=== PATIENT | female | born 1950 | race Two or more races ===

== ENCOUNTER 2016-10-13 13:55 | Emergency (ER) | payer BC ==
[2016-10-13 14:19] VITALS: BP 136/77; PULSE 54; RESP 18; TEMP 98.6; O2SAT 96
--- NOTE | 2016-10-13 15:21 | UCPHY ---
H & P Time Seen by Provider: 10/13/16 15:06 Patient Type: New HPI/ROS: This patient complains of nasal congestion associated with a cough for 2 days. She feels that the cough worsens at night. She has associated myalgias occasional chills. She feels a burning sensation in her sinuses. She reports a peak fever of 102 head night but that has no fever today. She has a slight scratchy throat associated with her symptoms. She tried [id number] medications without much improvement in her symptoms. ROS: She reports mild wheeze sensation. She has no pleuritic pain no other pulmonary symptoms. No constitutional symptoms other than that mentioned in HPI. 5 point ROS is otherwise negative Smoking Status: Never smoked Physical Exam: Physical Exam Vital signs are normal. General: No acute distress HEENT: Nose: Clear discharge. No sinus tenderness to percussion. Oropharynx is clear with no significant erythema or exudates. No dysphonia. Ears: External canals and TMs are clear bilaterally. Eyes: Pupils equal and react to light. Extraocular motions are intact. Lungs: Clear to auscultation with no rales, rhonchi or wheeze. No respiratory distress. Cardiac: Regular rate and rhythm with no murmur gallop rub. She has no peripheral edema. Skin: No rash or pallor. Neuro: Alert and oriented x3 with no sensorimotor deficits. Differential diagnosis: Viral URI versus influenza. Constitutional: Initial Vital Signs Temperature (C) 37.0 C 10/13/16 14:16 Heart Rate 54 L 10/13/16 14:16 Respiratory Rate 18 10/13/16 14:16 Blood Pressure 136/77 H 10/13/16 14:16 O2 Sat (%) 96 10/13/16 14:16 O2 Delivery Mode Room Air Allergies/Adverse Reactions: amoxicillin trihydrate [From Augmentin] Allergy (Verified 10/13/16 14:14) clindamycin Allergy (Verified 10/13/16 14:14) clindamycin HCl [From Cleocin] Allergy (Verified 10/13/16 14:14) clindamycin palmitate HCl [From Cleocin] Allergy (Verified 10/13/16 14:14) clindamycin phosphate [From Cleocin] Allergy (Verified 10/13/16 14:14) epinephrine Allergy (Verified 10/13/16 14:14) latex Allergy (Verified 10/13/16 14:14) NSAIDS (Non-Steroidal Anti-Inflamma Allergy (Verified 10/13/16 14:14) potassium clavulanate [From Augmentin] Allergy (Verified 10/13/16 14:14) Sulfa (Sulfonamide Antibiotics) Allergy (Verified 10/13/16 14:14) Home Medications: Medication Instructions Recorded Albuterol Hfa Anes Only [Proair 2 puffs IH Q4 PRN #1 mdi 10/13/16 Hfa Icu (*)] Coumadin 10/13/16 Eye Drops 10/13/16 Hydrochlorothiazide 10/13/16 Montelukast Sodium 10/13/16 Premarin 10/13/16 Proventil 10/13/16 MDM/Departure - MDM Diagnostics: Influenza is negative. ED Course/Re-evaluation: I counseled the patient regarding URI. She appears clinically well with no concerning findings that would suggest lower respiratory infection or other complications. - Depart Disposition: Home, Routine, Self-Care Clinical Impression: Viral URI with cough Instructions: Upper Respiratory Infection (ED) Additional Instructions: Diagnosis: 1. URI with cough 2. History of asthma Plan: Humidifier Albuterol inhaler with spacer for cough, wheeze or shortness of breath Guaifenesin Return here to the emergency department if he develops difficulty breathing despite the treatment plan or other concerns. Your symptoms should improve over the next 5-7 days. Prescriptions: Albuterol Hfa Anes Only [Proair Hfa Icu (*)] 2 puffs IH Q4 PRN #1 mdi PRN Reason: Wheezing Referrals: [place],. [Primary Care Provider] - As per Instructions - PQRS PQRS Measurement: NA
== END 2016-10-13 15:30 | disposition home or self-care (01) ==
LOC: CED 13:55
DX: J06.9 Acute upper respiratory infection, unspecified (principal); R05 Cough; J45.909 Unspecified asthma, uncomplicated
CPT/HCPCS: 87400-PO; G0463-PO

== ENCOUNTER → 2017-06-10 | Outpatient (CLI) | payer BC | LOC: FIMAGING 15:25 | DX: Z13.820 Encounter for screening for osteoporosis (principal); M85.80 Other specified disorders of bone density and structure, unspecified site ==

== ENCOUNTER → 2018-12-13 | Outpatient (CLI) | payer OTHER, BC | LOC: FCPNEURO 20:00 | PROVIDERS: ATTEND Student in an Organized Health Care Education/Training Program | DX: G47.33 Obstructive sleep apnea (adult) (pediatric) (principal) ==